=== PATIENT | female | born 1985 ===

== ENCOUNTER 2024-05-25 03:22 | Emergency (ER) | payer MEDICAID ==
[~2024-05-25] VITALS: Ht 175.3 cm; Wt 113.4 kg
[2024-05-25] MEDS ORDERED: NS 1,000 ML IV SCH (04:20)
[2024-05-25 04:26] LABS: BASOPHILS ABSOLUTE AUTO 0.03 K/mm3 (0.00-0.23); BASOPHILS PERCENT AUTO 0 % (0-2); EOSINOPHILS ABSOLUTE AUTO 0.09 K/mm3 (0.00-0.68); EOSINOPHILS PERCENT AUTO 1 % (0-6); Hematocrit 33.1 % (33.0-51.0); Hemoglobin 11.7 g/dL (11.5-16.0); IMMATURE GRAN ABSOLUTE AUTO 0.18 K/mm3 (0.00-0.10); IMMATURE GRAN PERCENT AUTO 1 % (0-1); LYMPHOCYTES ABSOLUTE AUTO 2.91 K/mm3 (0.84-5.20); LYMPHOCYTES PERCENT AUTO 23 % (21-46); MONOCYTES ABSOLUTE AUTO 0.81 K/mm3 (0.16-1.47); MONOCYTES PERCENT AUTO 7 % (4-13); Mean Corpuscular HGB 32.8 pg (26.0-34.0); Mean Corpuscular HGB Conc 35.3 g/dL (31.5-36.5); Mean Corpuscular Volume 93 fL (80-100); Mean Platelet Volume 9.4 fL (9.1-12.4); NEUTROPHILS ABSOLUTE AUTO 8.47 K/mm3 (1.96-9.15); NEUTROPHILS PERCENT AUTO 68 % (41-73); Platelet Count 236 K/mm3 (150-400); RDW Coefficient Variation 13.1 % (11.7-14.2); RDW Standard Deviation 44.2 fL (35.1-46.3); Red Blood Cell Count 3.57 M/mm3 (3.80-5.20); White Blood Cell Count 12.49 K/mm3 (4.00-11.30)
[2024-05-25 04:32] LABS: Source, Urine Clean Catch
[2024-05-25 04:37] LABS: Bilirubin, Urine Neg (Neg); Blood, Urine Neg (Neg); Glucose Qualitative, Urine Neg (Neg); Ketones, Urine Neg (Neg); Leukocyte Esterase, Urine 1+ (Neg); Nitrite, Urine Neg (Neg); Protein, Urine 2+ (Neg); Specific Gravity, Urine 1.025 (1.003-1.022); Urobilinogen, Urine 1+ (Normal)
[2024-05-25 04:39] LABS: Albumin, Blood 2.7 g/dL (3.4-5.0); Albumin/Globulin Ratio 0.7 (0.8-1.8); Bilirubin, Total 0.2 mg/dL (0.1-1.0); Bun/Creatinine Ratio 11.2 (12.0-20.0); Calcium, Blood 8.8 mg/dL (8.5-10.1); Creatinine, Blood 0.53 mg/dL (0.40-1.00); Globulin, Blood 3.7 g/dL (2.2-4.0); Potassium, Blood 3.8 mmol/L (3.5-5.5); Total Protein, Blood 6.4 g/dL (6.4-8.2)
[2024-05-25 04:40] LABS: Appearance, Urine Hazy (Clear); Color, Urine Yellow (P-Yellow)
[2024-05-25 04:53] LABS: Bacteria Few /hpf; Calcium Oxalate Crystals Many /hpf; Red Blood Cells, Urine Not Seen /hpf (0-2); Squamous Epithelial Cells Mod /hpf (Few); White Blood Cells, Urine 0-2 /hpf (0-5)
[2024-05-25] MEDS ORDERED: Cephalexin Monohydrate 500 MG Cap PO ONE (05:00)
[2024-05-25] MEDS ORDERED: CEPH500 PO (05:03)
== END 2024-05-25 05:25 | disposition home or self-care (01) ==
LOC: ER 03:22
PROVIDERS: Emergency Medicine
DX: O99.712 Diseases of the skin and subcutaneous tissue complicating pregnancy, second trimester (principal); L03.314 Cellulitis of groin; Z3A.24 24 weeks gestation of pregnancy; O99.212 Obesity complicating pregnancy, second trimester; Z68.41 Body mass index [BMI] 40.0-44.9, adult; Z59.89 Other problems related to housing and economic circumstances; Z79.899 Other long term (current) drug therapy
CPT/HCPCS: 80053; 81001; 85025; 93005; 93010; 99283-25; A9270; J7030